=== PATIENT | female | born 2000 | race Two or more races ===

== ENCOUNTER 2021-12-11 11:13 | Emergency (ER) | payer MEDICAID, SELFPAY ==
[2021-12-11 11:14] VITALS: BP 111/77; PULSE 83; RESP 16; TEMP 36.9; O2SAT 98; BMI 31.8
--- NOTE | 2021-12-11 11:25 | ED.VIS.LOWEX ---
HPI History of Present Illness Chief Complaint: Lower Extremity Injury Detail of Chief Complaint: Right ankle injury Informant: patient Onset/Context/Timing Onset: Weeks Timing: Waxes and wanes Quality of Pain: Aching and Throbbing Current Severity: Mild Maximum Severity: Moderate Narrative Narrative: Patient presents after right ankle injury. She was in [place] a week ago and fell while wakeboarding. She was seen at an urgent care where x-rays were reportedly negative. She was placed in a walking boot. She presents today because of continued pain and swelling. 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 She states they advised her that she may require an MRI to look for tendon damage. She is currently taking ibuprofen 800 mg every 8 hours. PFSH PFSH Medical History no medical history no medical history Home Medications No Known/Unobtainable [No Known Home Medications] 02/17/17 [History Last Taken Unknown] Allergy/AdvReac Type Severity Reaction Status Date / Time No Known Allergies Allergy Verified 12/11/21 11:14 Social History Smoking Status: Never smoker ROS ROS ED Constitutional Constitutional ED: Denies chills or fever(s) Eyes Eyes: Denies change in vision or discharge from eye(s) ENT ENT ED: Denies discharge from eye(s), rhinorrhea or sore throat Cardiovascular Cardiovascular: Denies chest pain or palpitations Respiratory/Chest Respiratory/Chest: Denies cough or dyspnea Gastrointestinal Gastrointestinal: Denies abdominal pain, nausea or vomiting Genitourinary Genitourinary ED: Denies dysuria Musculoskeletal Musculoskeletal: Reports extremity pain; Denies back pain Integumentary Denies Abrasions or rash Neurologic Neurologic: Denies headache(s) or weakness Psychiatric Psychiatric: Denies anxiety or depression Allergic/Immunologic Allergic/Immunologic ED: Denies lip swelling or urticaria EXAM Physical Exam Const Vital Signs: 12/11/21 11:14 Temperature 98.5 F Temperature Source Temporal Pulse Rate 83 Respiratory Rate 16 Blood Pressure 111/77 Blood Pressure Mean 88 Pulse Ox 98 Oxygen Delivery Method Room Air Positive well nourished and well developed General Appearance ED: well developed HEENT Reports normocephalic and head/scalp atraumatic Eyes PERRL and EOMs intact bilaterally Neck supple Chest Wall inspection of chest normal and palpation of chest normal Resp normal respiratory effort and clear to auscultation bilaterally Cardio regular rate and regular rhythm GI normal to inspection, nondistended, normoactive bowel sounds Palpation: soft Extremity Extremity Narrative: Edema and tenderness of the lateral malleolus of the right ankle. Ecchymosis noted to the right ankle as well as the dependent portion of the lateral right foot. Mild tenderness to the right midfoot. No calf tenderness or edema. Strong distal pulses and can wiggle toes. Neuro oriented x3 and no sensory deficits noted Sensorium / Orientation: alert Motor Exam: strength 5/5 throughout Psych mental status grossly normal Skin Skin Narrative: Ecchymosis as noted above. MDM MDM MDM Narrative Medical decision making narrative: X-rays of the right foot and ankle obtained. Treatment and Re-Evaluation Narrative: Right foot and ankle x-rays per my interpretation reveal no evidence of acute fracture. She will continue wearing her walking boot. She does not feel that she needs crutches. We discussed appropriate ice and elevation. She will be referred to orthopedics for follow-up. She was advised that the MRI of the ankle is not an emergent testing cannot be completed through the emergency room. Discharge Plan Triage Chief Complaint: Lower Extremity Injury ED Provider: Nereyda Bowen Dx/Rx/DC Orders Clinical Impression: Right ankle sprain Instructions: ED Ankle Sprain (Adult) Prescriptions: No Action No Known Home Medications Stand Alone Forms: ED Work / School Excuse Primary Care Provider: Rosa M Pablo Referrals: Yaniv Cardenas MD [Med Staff - Active Staff] - As soon as possible Care Physician,No Primary [Non-Staff] - Disposition Disposition: Home, Self Care
--- NOTE | 2021-12-11 11:55 | RAD_ITS ---
STUDY: X-RAY - RIGHT FOOT CLINICAL: Female, 21 years old. injury TECHNIQUE: 3 view(s) of the foot. COMPARISON: None. FINDINGS: Normal talus, calcaneus, and tarsal bones. 1 cm type II accessory navicular bone. Normal visualized subtalar, talonavicular, calcaneocuboid, tarsal and tarsometatarsal articulations. Normal metatarsi. Normal metatarsophalangeal joint of the great toe. Normal tibial and fibular sesamoid bones. Normal interphalangeal joint of the great toe. Normal phalanges of the great toe. Normal second through fifth metatarsophalangeal joints. Normal interphalangeal joints and phalanges of the lesser toes. The soft tissue structures are unremarkable. RAD/Foot min 3 Views IMPRESSION: Normal x-ray examination of the foot. Electronically Signed: Cruz Jaramillo MD at 12:27 EDT ,
--- NOTE | 2021-12-11 11:55 | RAD_ITS ---
STUDY: X-RAY - RIGHT ANKLE REASON FOR EXAM: Female, 21 years old. injury TECHNIQUE: 3 view(s) of the ankle. COMPARISON: None. FINDINGS: Normal visualized distal tibia and fibula. Normal medial and lateral malleoli. Normal tibiotalar articulation and ankle mortise. Normal visualized talus and calcaneus. The visualized subtalar, talonavicular, calcaneocuboid and tarsal articulations are normal. Lateral soft tissue swelling consistent with ligamentous injury. RAD/Ankle min 3 Views IMPRESSION: No acute fracture or dislocation. Lateral soft tissue swelling consistent with ligamentous injury. Electronically Signed: Cruz Jaramillo MD at 12:28 EDT ,
== END 2021-12-11 12:10 | disposition home or self-care (01) ==
PROVIDERS: Emergency Provider Emergency Medicine; PCP Internal Medicine; Visit Provider Emergency Medicine
DX: S93.401A Sprain of unspecified ligament of right ankle, initial encounter (principal); W17.89XA Other fall from one level to another, initial encounter; Y93.17 Activity, water skiing and wake boarding
CPT/HCPCS: 73610; 73630; 99282

== ENCOUNTER 2021-12-29 12:39 | Emergency (ER) | payer MEDICAID, SELFPAY ==
[2021-12-29 12:39] VITALS: BP 150/104; PULSE 102; RESP 18; TEMP 37.1; O2SAT 99; BMI 31.8
--- NOTE | 2021-12-29 13:00 | EX.ED.GENINJ ---
HPI History of Present Illness Chief Complaint: Bite Narrative Narrative: 21-year-old female presenting with dog bite. She states she was petting her neighbors dog who was on a leash on the side of her house. She states that the dog was initially very calm and she was petting it but it came off its collar and jumped and bit her on the ear and on the left side of the neck. She states this is a very small terrier. She states superficial laceration to the left ear and a mild superficial abrasion to the left side of the neck. There is no active bleeding. Patient states her last tetanus is unknown. PFSH PFSH Medical History no medical history Home Medications ibuprofen 200 mg tablet 200 mg PO Q6H PRN 12/15/21 [History Last Taken Unknown] amoxicillin 875 mg-potassium clavulanate 125 mg tablet 1 tab PO BID #20 tabs 12/29/21 [Rx Last Taken Unknown] Allergy/AdvReac Type Severity Reaction Status Date / Time No Known Allergies Allergy Verified 12/29/21 12:39 Social History household members: significant other Smoking Status: Never smoker ROS ROS ED Constitutional Constitutional ED: Denies chills or fever(s) Eyes Eyes: Denies change in vision ENT ENT ED: Reports ear pain right Cardiovascular Cardiovascular: Denies chest pain Respiratory/Chest Respiratory/Chest: Denies cough or dyspnea Gastrointestinal Gastrointestinal: Denies abdominal pain or constipation Genitourinary Genitourinary ED: Denies dysuria or hematuria Musculoskeletal Musculoskeletal: Denies arthralgias or back pain Integumentary Reports Abrasions Neurologic Neurologic: Denies headache(s) Psychiatric Psychiatric: Denies anxiety or depression EXAM Physical Exam Const Vital Signs: 12/29/21 12:39 Temperature 98.8 F Temperature Source Temporal Pulse Rate 102 H Respiratory Rate 18 Blood Pressure 150/104 H Blood Pressure Mean 119 Pulse Ox 99 Oxygen Delivery Method Room Air Positive well nourished General Appearance ED: NAD HEENT HEENT Narrative: Superficial abrasion noted to extend over the antitragus up into the antihelix which is well approximated. There is no active bleeding. There is a superficial abrasion to the left side of the neck. No crepitance is appreciated. No foreign bodies appreciated. No active bleeding Eyes PERRL and EOMs intact bilaterally Resp normal respiratory effort Cardio regular rhythm Rate: tachycardic Neuro oriented x3, CN's II-XII intact bilaterally and moves all extremities Sensorium / Orientation: alert Motor Exam: strength 5/5 throughout Psych Mood & Affect: tearful Skin Skin Narrative: As documented above MDM MDM MDM Narrative Medical decision making narrative: Patient with superficial linear abrasion to the left ear which is well approximated as well as a superficial abrasion to the left neck. I do not believe she needs sutures for these wounds as they are not actively bleeding and there very minimal although left ear does have a larger abrasion which is about 2 to 3 cm. Patient's tetanus was updated. She started on Augmentin. She is given wound care instructions. Her wounds were cleaned here in the ER. Patient stable for discharge. Impression: 1. Dog bite 2. Superficial abrasion to the left ear 3. Superficial abrasion to the left neck Lab Data Attestation: I reviewed the patient's lab results. Discharge Plan Triage Chief Complaint: Bite ED Provider: Khang Alonso Dx/Rx/DC Orders Instructions: ED Dog Bite Prescriptions: New amoxicillin-pot clavulanate 875-125 mg tablet 1 tab PO BID Qty: 20 0RF No Action ibuprofen 200 mg tablet 200 mg PO Q6H PRN Primary Care Provider: Rosa M Pablo Referrals: Rosa M Pablo MD [Primary Care Provider] - Disposition Disposition: Home, Self Care
[2021-12-29] MEDS: Amox/Clavulanate 875 MG Tablet PO (13:11)
[2021-12-29] MEDS: Diphth,Pertuss(Acell),Tet Vac 0.5 ML Vial IM (13:12)
== END 2021-12-29 13:25 | disposition home or self-care (01) ==
PROVIDERS: Emergency Provider Student in an Organized Health Care Education/Training Program; PCP Internal Medicine; Visit Provider Student in an Organized Health Care Education/Training Program
DX: S10.91XA Abrasion of unspecified part of neck, initial encounter (principal); S00.412A Abrasion of left ear, initial encounter; W54.0XXA Bitten by dog, initial encounter; Z23 Encounter for immunization
CPT/HCPCS: 90471; 90715; 99282

== ENCOUNTER 2022-01-20 08:00 | Outpatient (RCR) | payer MEDICAID, SELFPAY ==
--- NOTE | 2021-12-19 08:57 | HP.PTEVAL ---
Patient's Visit Information LAVON SWEENEY is a 21 year old F referred to Physical Therapy by Dr. Yaniv Cardenas MD with a diagnosis of Right Ankle Sprain. Date of Evaluation: 12/19/21 Physical Therapist: Leny Carrington DPT - Visit Plan Frequency: 2x /Week Duration: 4 Weeks Plan: Focus on proprioception, edema management, ROM and muscular endurance. HEP Given IE: ankle ROM exercises - Subjective Patient reports that she hurt her ankle about 2 weeks ago- she was trying to wake surfing. She rolled her ankle and felt a pop. The next day they went to Urgent Care they gave her a boot and x-ray which was negative. She was really swollen by the time she got home so she went to the ER because 3 of her toes would not move. They did another x-ray and sent her to ortho. She was Dr. Cardenas- he reported a high grade ankle sprain. He told her go to therapy- he wants her to stay in the boot and come back to see him if it gets worse and go to PT. She has been in the boot outside of the house since the injury. She wears crocs inside her house. Pain is located along the lateral malleolus and can wrap around the medial side- and the last three toes. Will radiate to the distal fibula. Worst: 6-7/10 Agg: walking on it or if she steps the wrong way. Eases: ice, elevation. Best: 0/10. Describes the pain as sharp if she steps on it wrong but mostly dull and achy. No N/T at this time. She is normally pretty active. Work: [employer] at [employer]- she is not working due to the boot. 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 She normally walks the dogs an some videos online for workouts when she has the time. Sleep: no boot and not disturbed but does wake up with some soreness. PMHx: none Meds: Ibuprofen for her ankle. - Objective Posture: fair throughout. Gait: antalgic- decreased stance on the right LE with poor heel/toe pattern- Does have short CAM boot and performs a step to pattern. Observation: bruising along the lateral malleolus and the last 3 toes. Edema: Malls: 25 cm Mets: 22 cm Figure 8: 51 cm. Palpation: tender along lateral malleolus- down the left 5th met and to AP mobilization of the metatarsals and mid foot. ROM: DF: neutral, PF: 30 degrees, Inv: 10 degrees, Ever: 10 degrees, Knee: WNL'. Strength: Knee: 5/5, Ankle: 2+/5. SLS: unable but does weight shift 50% with discomfort. HR/TR: able but does with only 25% WB. Flex: Gastroc: severe, Solues: severe - Balance/Special Test Scores Lower Extremity Functional Score: 32 - Goals Goal 1:: Patient will be I with HEP and progression Goal Time Frame: 4-6 Weeks Goal 2:: Patient will demo girth of figure 8 less than 2 cm from non injured ankle Goal Time Frame: 4-6 Weeks Goal 3:: Patient will ambulate >300 feet with a normalized gait pattern Goal Time Frame: 4-6 Weeks Goal 4:: Patient will SLS for 30 sec without LOB Goal Time Frame: 4-6 Weeks Goal 5:: Patient will report 80% improvement Goal Time Frame: 4-6 Weeks - Rehabilitation Potential Physical Therapy Diagnosis: Patient presents with hypomobility- she has decreased ROM, LE and core strength/stabilization, flex and muscular endurance s/p ankle sprain leading to increased edema, pain and difficulty with ADL's. - Anticipated Interventions Patient/Client Instruction: Educate patient on: Benefits of Fitness Program Therapeutic Exercise to Include: Strength training, Endurance training, Balance training, Coordination, Agility training, Body mechanics, Postural training, Flexibilty training, Gait and locomotor training, Neuromotor development, Dynamic Lumbar Stabilization, Scapular Strength/Stabilization For the Purpose of:: To improve muscle performance and motor function TENS: Yes Cryotherapy (ice pack, ice massage): Yes Thermo therapy (hot pack): Yes Ultrasound (thermal/non thermal): Yes Vasopneumatic device: Yes Thank you for the opportunity to evaluate your patient. For Medicare and Medicare HMO plans, please review the plan of care and approve it. It will need to be FAXED BACK to us at [phone] for Medicare purposes. For Medicare only, by signing this I certify the plan of care. Please let me know if there are questions or concerns regarding this plan of care. Physician Signature: Date:
--- NOTE | 2022-01-20 08:48 | HP.PTDCSUM ---
It has been my pleasure to treat LAVON SWEENEY referred by Dr. Yaniv Cardenas MD, with the diagnosis of Right Ankle Sprain for a total of 8 visit(s). Discharge Date: Please see the following information for a summary of their discharge status. 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 She does have soreness but no pain. There is nothing she can't do and is back to all normal ADL's. Right ankle Pain Intensity (Out of 10): 0 % Improvement: 100 Objective/Function: Posture: good Gait: no deviation in either walking or running Edema: Malls: 24 cm Mets: 20 cm Figure 8: 50 cm. Palpation: not tender to touch ROM: DF: 10, PF: 60 degrees, Inv: 15 degrees, Ever: 15 degrees, Knee: WNL'. Strength: Knee: 5/5, Ankle: 5/5. SLS: 15 sec with moderate sway HR/TR: able without UE A. Flex: Gastroc: mod, Solues: mod Goal 1:: Patient will be I with HEP and progression Goal Progress: Goal Met Goal 2:: Patient will demo girth of figure 8 less than 2 cm from non injured ankle Goal Progress: Goal Met Goal 3:: Patient will ambulate >300 feet with a normalized gait pattern Goal Progress: Goal Met Goal 4:: Patient will SLS for 30 sec without LOB Goal Progress: Progressing Goal 5:: Patient will report 80% improvement Goal Progress: Goal Met Plan: 01/20/22: Dischrage to I HEP If there are questions or concerns regarding this patient's physical therapy, please feel free to call me at [phone]. Thank you for the referral of this patient. Sincerely, Leny Carrington, DPT Balance/Gait/Functional tests - Balance/Special Test Scores Lower Extremity Functional Score: 73
== END 2022-01-20 10:03 | disposition home or self-care (01) ==
LOC: PT 08:00
PROVIDERS: PCP Internal Medicine; Referring Provider Orthopaedic Surgery Sports Medicine; Visit Provider Orthopaedic Surgery Sports Medicine
DX: S93.401D Sprain of unspecified ligament of right ankle, subsequent encounter (principal); X58.XXXD Exposure to other specified factors, subsequent encounter
CPT/HCPCS: 97016; 97110; 97162; 97164